=== PATIENT | male | born 1985 | race Caucasian/White ===

== ENCOUNTER 2019-12-21 18:33 | Emergency (ER) | payer OTHER, SELFPAY ==
[2019-12-21 18:35] VITALS: BP 151/100; PULSE 76; RESP 23; TEMP 37; O2SAT 98; BMI 33.7
--- NOTE | 2019-12-21 18:45 | CT_ITS ---
STUDY: CT ABDOMEN AND PELVIS WITHOUT CONTRAST REASON FOR EXAM: Male, 34 years old. RT GROIN PAIN AND RT TESTICLE PAIN RADIATION DOSAGE (If Supplied By Facility): CTDIvol = ( 14.46 ) mGy, DLP = ( 875.69 ) mGycm TECHNIQUE: Transaxial images were obtained from the dome of the diaphragm to the symphysis pubis without oral contrast, and without intravenous contrast. Sagittal and coronal images were reconstructed. Individualized dose optimization techniques were used for this CT. COMPARISON: None. FINDINGS: Lung bases are clear. Heart size is normal. The liver is unremarkable. The gallbladder is unremarkable. The spleen and pancreas are unremarkable. The adrenal glands are normal. Bilateral renal calculi measuring up to 3 mm. Left kidney is otherwise unremarkable. No left hydronephrosis. Trace right hydronephrosis and right hydroureter. There is a 3 mm stone at the right ureterovesical junction. The aorta is normal in caliber. There is no free fluid, free air, or organized collection. No bowel obstruction or inflammatory change. Normal appendix. Urinary bladder is unremarkable. Normal abdominal wall. No acute osseous abnormality. Old healed left rib fracture. CT/Abdomen/Pelvis without Cont IMPRESSION: 1. A 3 mm stone at the right UVJ with trace proximal hydroureteronephrosis. 2. Small nonobstructing renal calculi bilaterally. Electronically Signed: Kathia Reyes MD at 20:14 EDT Tel , Service support ,
[2019-12-21] MEDS: Ondansetron 4 MG/2 ML Vial IV (19:03)
[2019-12-21] MEDS: Ketorolac 30 MG/ML Syringe IV (19:04)
[2019-12-21] MEDS: 0.9% Normal Saline 1,000 ML 1000 ML IV (19:04)
[2019-12-21 19:16] LABS: Absolute Lymphocyte Count 2.97 X10^3/uL (0.83-4.51); Absolute Neutrophil Count 3.2 X10^3/uL (2.0-7.7); Basophil# 0.06 X10^3/uL; Basophil% 0.8 % (0-1); Eosinophil# 0.51 X10^3/uL; Hematocrit 45.5 % (40-54); Hemoglobin 16.4 g/dL (13.0-16.5); Lymphocyte # 2.97 X10^3/ul (4.0); Lymphocyte % 40.5 % (19-41); Mean Corpuscular Hgb 32.9 pg (27.0-32.0); Mean Corpuscular Volume 91.2 fL (80-94); Mean Platelet Vol. 9.1 fl (6.2-12.0); Monocyte# 0.53 X10^3/uL; Monocyte% 7.2 % (0-10); NRBC Flagged by Analyzer 0 % (0-5); Neutrophil # 3.23 X10^3/uL (2.7-7.7); Neutrophil % 44.1 % (47-70); Platelet Count 272 K/mm3 (150-450); RBC Distribution Width CV 12.6 % (11.6-14.6); RBC Distribution Width SD 41.1 fl (35.1-43.9); Red Blood Count 4.99 M/mm3 (4.6-6.2); White Blood Count 7.3 K/mm3 (4.4-11.0)
[2019-12-21 19:30] LABS: Anion Gap 8 (5-15); BUN 14 mg/dL (7-18); BUN/Creat Ratio 12.2 RATIO (10-20); Calcium,Total 9.8 mg/dL (8.5-10.1); Chloride 109 mmol/L (98-107); Creatinine, Serum 1.15 mg/dL (0.70-1.30); EST Glomerular Filtration Rate 78 mL/min (>60); Est Glom Filt Rate - Afr Amer 95 mL/min (>60); Estimated Creatinine Clearance 95.22 ml/min; Glucose 134 mg/dL (74-106); Potassium 3.3 mmol/L (3.5-5.1); Sodium Level 141 mmol/L (136-145)
[2019-12-21 21:36] LABS: Bacteria 0 SEEN /hpf (None Seen); Mucous, Urine 0 SEEN /hpf (<or=2+); Red Blood Cells-Urine 0 SEEN /hpf (0-5); Squamous Epithelial Cells - UA 0 SEEN /hpf (0-5); White Blood Cells 0 SEEN /hpf (0-5)
[2019-12-21 21:41] LABS: Color, Urine Yellow (Yellow); Glucose, Dipstick Normal (Normal); Ketone-Dipstick 15 mg/dl (Negative); Leukocyte Esterase-Dipstick Negative /ul (Negative); Nitrite-Dipstick Negative (Negative); Occult Blood-Urine Negative /ul (Negative); Protein-Dipstick Negative (Negative); Specific Gravity, Urine 1.015 (1.002-1.030); Urine Bilirubin Dipstick Negative (Negative); Urine Clarity Sl. Cloudy (Clear); Urine Urobilinogen Normal (Normal)
--- NOTE | 2019-12-21 22:05 | ED.VISSUMM ---
- ER Visit Summary Date of Service: 12/21/19 Chief Complaint: Right groin pain History of Present Illness: The patient is a 34 M with sudden onset of right groin pain shortly prior to arrival. Associate with nausea. History of kidney stones. Physical Examination: Afebrile. Hypertensive. Appears uncomfortable. Lower abdominal tenderness. exam unremarkable. Nontender. Test Results: Urinalysis unremarkable. Potassium 3.3, chloride 109, glucose 134. CBC normal. CT showed a 3 mm stone at the right UVJ. Emergency Department Course and Treatment: Patient treated with Toradol, fluids, Zofran while awaiting results. Pain is consistent with ureteral colic. He was given a urine strainer. Prescription database showed no active controlled substances. He was given a prescription for Percocet, nausea medicine, Flomax. Follow-up with urology. Treatment Plan: As above Disposition: Discharge Impression: Ureteral colic This note was generated with [employer] dictation software. It may contain incorrect words, spelling, and punctuation that were not noted in review of the chart prior to signing ED Disposition - Plan for ED Patient: [facility]errals: [facility] [Primary Care Provider] -
--- NOTE | 2019-12-21 22:06 | ED.DEP ---
ED Disposition - Plan for ED Patient: Instructions: ED Renal Stone w Colic Prescriptions: Tamsulosin HCl [Flomax] 0.4 mg PO DAILY #7 cap Prescription Printed Oxycodone HCl/Acetaminophen [Percocet 5/325] 1 tab PO Q6H PRN PRN 3 Days #12 tab PRN Reason: Pain Prescription Printed Ondansetron [Zofran Odt] 4 mg PO Q8H PRN PRN #10 tab PRN Reason: Nausea Prescription Printed Referrals: Shay Rushing MD [STAFF PHYSICIAN] -
[2019-12-21 22:10] VITALS: BP 128/78; PULSE 80; RESP 16; O2SAT 98
== END 2019-12-21 22:15 | disposition home or self-care (01) ==
PROVIDERS: Emergency Provider Emergency Medicine
DX: N13.2 Hydronephrosis with renal and ureteral calculous obstruction (principal); N50.811 Right testicular pain; Z87.442 Personal history of urinary calculi
CPT/HCPCS: 74176; 80048; 81001; 85025; 96361; 96374; 96375; 99283; J7030; J2405

== ENCOUNTER 2020-07-14 21:47 | Emergency (ER) | payer OTHER, SELFPAY ==
[2020-07-14 21:48] VITALS: BP 162/100; PULSE 81; RESP 16; TEMP 35.7; O2SAT 100; BMI 34.4
--- NOTE | 2020-07-14 21:54 | ED.VIS.GEN ---
History of Present Illness Chief Complaint: Flank Pain Informant: Patient Onset: Hours - Onset 1999 Context: Sudden Onset Timing: Continuous, Waxes and wanes Quality: Pain Location: Left flank Current Severity: Moderate Maximum Severity: Severe Worsened by: Nothing, unable to find position of comfort Relieved by: Nothing Associated Symptoms: Nausea and urgency Narrative: Patient is a 34-year-old male who was seen in December 2019 for obstructing right ureteral stone at the UVJ, 3 mm. He presents with abrupt onset of left flank pain that radiates anteriorly to his groin. He complains of urgency and nausea. He denies fever or chills. He denies history of diabetes, peptic ulcer disease or renal disease. He has no other complaints. Prior similar symptoms: Yes - December 2019 Recent Illness/Hospitalization: No - Past Medical History (1) Ureterolithiasis Status: Resolved Past Medical History - Allergies and Home Meds Allergies/Adverse Reactions: Allergies No Known Allergies Allergy (Verified 07/14/20 21:53) Primary Care Physician: [facility] [Primary Care Provider] - Prior records reviewed: Yes Surgical History: noncontributory Lives: Spouse/ Significant Other Smoking Status: Never smoker Alcohol: None Drugs: None Review of Systems General: Denies: Chills, Fever, Malaise, Subjective Eyes: Denies: Visual changes - bilaterally, Blurred Vision - bilaterally ENT: Denies: Rhinorrhea, Sore throat Cardiovascular: Denies: Chest pain, Palpitations Respiratory: Denies: Dyspnea, Cough, Dyspnea on exertion Gastrointestinal: Reports: Abdominal pain, Nausea. Denies: Vomiting, Diarrhea, Melena, Hematochezia Genitourinary: Reports: Frequency. Denies: Dysuria, Hematuria Musculoskeletal: Reports: Back pain. Denies: Myalgias, Arthralgias, Neck pain, Swelling, Extremity Pain Skin: Denies: Rash, Wounds Neurological: Denies: Headache, Weakness, Parasthesia Endocrine: Denies: Polyuria, Polydipsia Hematologic: Denies: Easy bruising, Easy bleeding Physical Exam Vital Signs/Narrative: Vital Signs Temp Pulse Resp BP Pulse Ox 07/14/20 21:48 96.2 F L 81 16 162/100 H 100 Inital Vital Signs reviewed: Yes General: Well nourished, Well developed, Obese Head: Normocephalic, Atraumatic Eyes: Perrl, EOMI. Negative for: Pale conjunctiva Neck: Supple, Nontender, No lymphadenopathy Cardiovascular: Regular rate, Regular rhythm, No murmurs, Normal S1, Normal S2 Respiratory: No distress, CTA bilaterally, Chest nontender Abdomen: Soft, Nontender, Nondistended, Normal bowel sounds Rectal: Deferred Back: Nontender, Normal Inspection, CVA tenderness - Left side Extremities: Nontender, No edema Skin: Normal color, No rash Neurological: Alert, Oriented x3, Cranial nerves II-XII grossly intact, Normal Strength, Normal Sensation, Normal DTR, Normal Gait Psychological: Normal affect Diagnostic/Tx/Re-eval - Medical Decision Making With history of abrupt left flank pain radiating to the groin need to rule out obstructing stone, pyelonephritis, hernia, testicular torsion. He was medicated with 4 mg of Zofran, 50 mg of Toradol and 4 mg of morphine IV push. Urine was obtained to assess for infection and basic metabolic panel was obtained to assess for renal function. Had the documentation for the December 2019 ER visit. He had a 3 mm right UVJ stone noted at that time. When patient exited the restroom he informed that he passed a stone and his pain resolved. There is a several millimeter stone in the collection cup. Since he is pain-free studies were canceled he was discharged to home. ED Disposition - Plan for ED Patient: Disposition: Home or Assisted Living Diagnosis: Ureteral calculus, left Instructions: ED Kidney Stone w/ Colic [facility]errals: [facility] [Primary Care Provider] - As Needed
== END 2020-07-14 22:08 | disposition home or self-care (01) ==
LOC: ED 22:06
PROVIDERS: Emergency Provider Emergency Medicine
DX: N20.1 Calculus of ureter (principal); E66.9 Obesity, unspecified; Z87.442 Personal history of urinary calculi
CPT/HCPCS: 99281; 99282; J2405